=== PATIENT | female | born 1970 | race Caucasian/White ===

== ENCOUNTER 2017-11-02 10:11 | Emergency (ER) | payer OTHER ==
[~2017-11-02] VITALS: Ht 167.6 cm; Wt 72.6 kg
--- NOTE | 2017-11-02 11:35 | ED GENERAL ADULT ---
History of Present Illness General Chief Complaint: ETOH/Drug Related Complaint Stated Complaint: SIB HIGHWATCH ETOH DETOX/WITHDRAWAL Source: patient, old records Exam Limitations: no limitations Vital Signs & Intake/Output Vital Signs & Intake/Output Vital Signs Date Time Temp Pulse Resp B/P B/P Pulse O2 O2 Flow FiO2 Mean Ox Delivery Rate 11/03 829 98.4 88 20 148/85 11/03 0830 98.4 88 20 148/85 100 Room Air 11/03 0630 98.6 88 20 160/80 11/03 0630 98.6 88 20 160/80 98 Room Air 11/03 0301 98.7 99 18 133/83 98 Room Air 11/03 0300 98.7 99 18 133/83 11/02 2248 97.6 90 16 144/80 11/02 2239 96 16 144/80 100 Room Air 11/02 1958 98.2 90 18 135/72 11/02 1958 98.2 90 18 135/72 100 Room Air Room Air 11/02 1546 98.4 78 18 115/74 11/02 1522 98.4 78 18 115/74 98 Room Air Room Air ED Intake and Output 11/03 0000 11/02 1200 Intake Total 0 Output Total Balance 0 Intake, Oral 0 Patient 160 lb Weight Weight Estimated Measurement Method Allergies Coded Allergies: clarithromycin (From BIAXIN) ("ALL THE SIDE EFFECTS" 11/02/17) Triage Note: PT TO ED FOR HIGH WATCH CLEARANCE FOR ETOH DETOX. PT DENIES BEING A DAILY DRINKER. PT'S MOTHER CALLED [facility] FOR TRANSPORT TO [facility], BUT PT'S BREATHALIZER WAS .4. REPORTS SHE DRANK THIS MORNING ?ONE SHOT OF VODKA. PT APPEARS INTOXICATED IN TRIAGE. Triage Nurses Notes Reviewed? yes HPI: This is a 47-year-old female with history of alcohol abuse without history of withdrawal seizures presenting to the emergency department, requesting inpatient stay at [facility] but intoxicated with alcohol. Patient states she excepted a glass of "vodka" from her neighbor in a unmarked cup. She drank this this morning. She denies any coingestions. She denies suicidal or homicidal ideations or hallucinations. She states she feels well otherwise wishes to seek treatment for her alcoholism. She states that she drinks "intermittently ", occasionally heavily. She denies any trauma or abuse. (Seun Farrar MD) Past History Travel History Traveled to [place] past 21 day No Medical History Any Pertinent Medical History? 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 No (Seun Farrar MD) Review of Systems Review of Systems Constitutional: Reports: no symptoms. EENTM: Reports: no symptoms. Respiratory: Reports: no symptoms. Cardiovascular: Reports: no symptoms. GI: Reports: no symptoms. Genitourinary: Reports: no symptoms. Musculoskeletal: Reports: no symptoms. Skin: Reports: no symptoms. Neurological/Psychological: Reports: no symptoms. Hematologic/Endocrine: Reports: no symptoms. Immunologic/Allergic: Reports: no symptoms. (Seun Farrar MD) Physical Exam Physical Exam General Appearance: well developed/nourished, no apparent distress, alert, anxious Head: atraumatic, normal appearance Eyes: Bilateral: normal appearance, PERRL, EOMI. Ears, Nose, Throat: normal pharynx, normal ENT inspection Neck: normal inspection, supple, full range of motion Respiratory: normal breath sounds, chest non-tender, no respiratory distress Cardiovascular: regular rate/rhythm, normal peripheral pulses Extremities: normal inspection, normal capillary refill, normal range of motion, no edema Neurologic/Psych: no motor/sensory deficits, awake, alert, oriented x 3 Skin: intact, normal color, warm/dry Comments: Well-appearing middle-aged female, no acute distress. Mildly anxious with some smell of alcohol on her breath. Speech is not slurred and she has a non-ataxic gait. Core Measures ACS in differential dx? No CVA/TIA Diagnosis: No Sepsis Present: No Sepsis Focused Exam Completed? No (Seun Farrar MD) Progress Differential Diagnoses I considered the following diagnoses in my evaluation of the patient: Plan of Care: Orders Procedure Date/time Status Regular Diet 11/02 D Active Vital Signs 11/02 1136 Active CIWA 11/02 1136 Active URINE DRUGS OF ABUSE 11/02 1136 Complete URINE 11/02 1136 Complete LIPASE 11/02 1136 Complete ETHANOL 11/02 1136 Complete COMPREHENSIVE METABOLIC PANEL 11/02 1136 Complete CBC WITHOUT DIFFERENTIAL 11/02 1136 Complete Laboratory Tests 11/02/17 1156: Anion Gap 18 H, Estimated GFR > 60, BUN/Creatinine Ratio 15.0, Glucose 93, Calcium 9.5, Total Bilirubin 0.4, AST 86 H, ALT 95 H, Alkaline Phosphatase 81, Total Protein 7.3, Albumin 4.8, Globulin 2.5, Albumin/Globulin Ratio 1.9, Lipase 76, CBC w Diff NO MAN DIFF REQ, RBC 4.36, MCV 96.1, MCH 33.5 H, MCHC 34.9, RDW 14.8 H, MPV 7.2 L, Gran % 58.9, Lymphocytes % 34.3, Monocytes % 5.6, Eosinophils % 0.7, Basophils % 0.5, Absolute Granulocytes 3.7, Absolute Lymphocytes 2.1, Absolute Monocytes 0.4, Absolute Eosinophils 0, Absolute Basophils 0, Serum Alcohol 384.0 11/02/17 1143: Urine Opiates Screen < 100, Methadone Screen < 40, Barbiturate Screen < 60, Ur Phencyclidine Scrn < 6.00, Amphetamines Screen < 100, U Benzodiazepines Scrn < 85, Urine Cocaine Screen < 50, Urine Cannabis Screen < 5.00, Urine Test NEGATIVE Plan for labs per EtOH protocol, reassessment, likely discharge. Care signed out to Dr Talbert Initial ED EKG: none (Seun Farrar MD) Departure Departure Time of Disposition: 2330 Condition: Stable Clinical Impression Primary Impression: Alcohol intoxication Referrals: Unknown (PCP/Family) Departure Forms: Customer Survey General Discharge Information (Seun Farrar MD) Departure Comments pt to be signed out to dr. bennett, 11/03/17, 7am. (Nitish LANDERS,Magen De Leon) Departure Disposition: HOME OR SELF CARE Additional Instructions: Go directly to [facility]. (Anthony LANDERS,Matt) Resident Co-Sign Statement Statement: ED Attending supervision documentation- [] I saw and evaluated the patient. I have also reviewed all the pertinent lab results and diagnostic results. I agree with the findings and the plan of care as documented in the Resident's documentation. [x] I have reviewed the ED Record and agree with the Resident's documentation. [] Additions or exceptions (if any) to the Resident's note and plan are summarized below: [] (Will MITCHELL,Jose R Heaton) Critical Care Note Critical Care Note Critical Care Time: non-applicable (Charan LANDERS,Seun)
[2017-11-02 12:06] LABS: ABSOLUTE BASOPHIL COUNT 0 /CUMM (0.0-0.2); ABSOLUTE EOSINOPHIL COUNT 0 /CUMM (0.0-0.7); ABSOLUTE GRANULOCYTE CT 3.7 /CUMM (1.4-6.5); ABSOLUTE LYMPH COUNT 2.1 /CUMM (1.2-3.4); ABSOLUTE MONOCYTE COUNT 0.4 /CUMM (0.10-0.60); BASOPHIL % 0.5 % (0.0-2.0); EOSINOPHIL % 0.7 % (0-5); GRANULOCYTE % 58.9 % (42.2-75.2); MEAN CORPUSCULAR HGB 33.5 PG (27.0-31.0); MEAN CORPUSCULAR HGB CONC 34.9 G/DL (33.0-37.0); MEAN CORPUSCULAR VOLUME 96.1 FL (81.0-99.0); MEAN PLATELET VOLUME 7.2 FL (7.4-10.4); PLATELET COUNT 391 /CUMM (130-400); RBC DISTRIBUTION WIDTH 14.8 % (11.5-14.5); RED BLOOD CELL CT 4.36 /CUMM (4.20-5.40); WHITE BLOOD CELL COUNT 6.2 /CUMM (4.8-10.8)
== END 2017-11-03 09:10 ==
LOC: ERH 10:11
PROVIDERS: Student in an Organized Health Care Education/Training Program
DX: F10.129 Alcohol abuse with intoxication, unspecified (principal)
CPT/HCPCS: 80307; 81025; G0480